=== PATIENT | male | born 1965 | race Caucasian/White ===

== ENCOUNTER → 2019-10-08 09:43 | Outpatient (BNVA) | payer MEDICARE, MEDICAID, SELFPAY | PROVIDERS: Family Provider Nurse Practitioner Family; PCP Nurse Practitioner Family; Visit Provider Specialist | DX: G80.1 Spastic diplegic cerebral palsy (principal); G40.309 Generalized idiopathic epilepsy and epileptic syndromes, not intractable, without status epilepticus | CPT/HCPCS: 99214 ==

== ENCOUNTER → 2019-12-04 09:53 | Outpatient (BNVA) | payer MEDICARE, MEDICAID, SELFPAY | PROVIDERS: Family Provider Nurse Practitioner Family; PCP Nurse Practitioner Family; Visit Provider Specialist | DX: G40.909 Epilepsy, unspecified, not intractable, without status epilepticus (principal); G40.309 Generalized idiopathic epilepsy and epileptic syndromes, not intractable, without status epilepticus | CPT/HCPCS: 95816 ==

== ENCOUNTER → 2020-01-01 10:18 | Outpatient (BNVA) | payer MEDICARE, MEDICAID, SELFPAY | PROVIDERS: Family Provider Nurse Practitioner Family; PCP Nurse Practitioner Family; Visit Provider Specialist | DX: G40.309 Generalized idiopathic epilepsy and epileptic syndromes, not intractable, without status epilepticus (principal); G80.1 Spastic diplegic cerebral palsy | CPT/HCPCS: 99214 ==

== ENCOUNTER → 2020-04-09 09:57 | Outpatient (BNVA) | payer MEDICARE, MEDICAID, SELFPAY | PROVIDERS: Family Provider Nurse Practitioner Family; PCP Nurse Practitioner Family; Visit Provider Specialist | DX: G40.309 Generalized idiopathic epilepsy and epileptic syndromes, not intractable, without status epilepticus (principal) | CPT/HCPCS: 99213 ==

== ENCOUNTER → 2022-02-10 09:22 | Outpatient (BNVA) | payer MEDICARE, MEDICAID, SELFPAY | PROVIDERS: Family Provider Nurse Practitioner Family; PCP Nurse Practitioner Family; Visit Provider Specialist | DX: G40.909 Epilepsy, unspecified, not intractable, without status epilepticus (principal) | CPT/HCPCS: 80157; 99213; 99214 ==

== ENCOUNTER → 2022-05-17 10:32 | Outpatient (BNVA) | payer MEDICARE, MEDICAID, SELFPAY | PROVIDERS: Family Provider Nurse Practitioner Family; PCP Nurse Practitioner Family; Visit Provider Specialist | DX: G40.409 Other generalized epilepsy and epileptic syndromes, not intractable, without status epilepticus (principal); G80.1 Spastic diplegic cerebral palsy | CPT/HCPCS: 99213; 99214 ==

== ENCOUNTER 2022-08-10 17:32 | Outpatient (CLI) | payer MEDICARE, MEDICAID, SELFPAY ==
--- NOTE | 2022-08-10 17:40 | XRR_ITS ---
PROCEDURE INFORMATION: Exam: XR Chest Exam date and time: 08/10/2022 5:46 PM Age: 57 years old Clinical indication: Cough; Additional info: Rule out aspiration pneumonia after choking TECHNIQUE: Imaging protocol: Radiologic exam of the chest. Views: 2 views. COMPARISON: CR XR chest 1V [id number] 03/13/2019 3:54 PM FINDINGS: Lungs: Unremarkable. No consolidation. Pleural spaces: Unremarkable. No pleural effusion. No pneumothorax. Heart/Mediastinum: Unremarkable. No cardiomegaly. Bones/joints: Metal alana in the left humerus. Kyphosis and degenerative changes of the thoracic spine. No visible fracture. XR/XR chest 2V* [id number] IMPRESSION: No acute findings.
== END 2022-08-10 17:33 | disposition home or self-care (01) ==
PROVIDERS: Family Provider Nurse Practitioner Family; PCP Nurse Practitioner Family; Visit Provider Nurse Practitioner Family
DX: R07.89 Other chest pain (principal); R05.9 Cough, unspecified
CPT/HCPCS: 71046

== ENCOUNTER 2022-09-01 16:42 | Emergency (ER) | payer MEDICARE, MEDICAID, SELFPAY ==
[2022-09-01 17:01] VITALS: PULSE 80; RESP 19; TEMP 36.6; O2SAT 99; BMI 19.5
--- NOTE | 2022-09-01 17:09 | XRR_ITS ---
PROCEDURE INFORMATION: Exam: XR Right Hand Exam date and time: 09/01/2022 5:20 PM Age: 57 years old Clinical indication: Pain; Patient HX: Patient from assisted found to have bruises on his right hand and holding it differently than normal. ; Additional info: Injury TECHNIQUE: Imaging protocol: Radiologic exam of the Right hand. Views: 3 or more views. COMPARISON: No relevant prior studies available. FINDINGS: Bones/joints: There is a small chip of bone along the dorsal aspect of the wrist common best seen on the lateral view, which may represent dorsal fracture from the hamate. Please correlate with clinical findings. There is widened scapholunate interval of over 6 mm consistent with scapholunate dissociation of uncertain age. Soft tissues: Mild soft tissue swelling dorsally. XR/XR hand RT min 3V* [id number] IMPRESSION: 1. Scapholunate dissociation. 2. Suspected dorsal fracture of the hamate.
--- NOTE | 2022-09-01 18:03 | W.ED.SKABFB ---
HPI - Skin/Abscess/Foreign Bdy General: Chief complaint: Skin/Abscess/Foreign Body Stated complaint: Right hand pain, Bruising Time Seen by Provider: 09/01/22 18:03 History of Present Illness: 57-year-old male patient comes in today with injury to the right hand. Patient's caregivers noted that his right hand was a little swollen yesterday and then today they noticed bruising. Patient was brought in for further evaluation to rule out fracture. Patient has cerebral palsy and developmental delay. Review of Systems Musc: Reports: extremity swelling PFSH ED PFSH: Family History Other Cancer Denies family history of Diabetes Hypertension Stroke Social History Smoking and tobacco status: never smoked Alcohol intake: never History of recent travel: No Physical Exam Const: COMMON NORMALS: alert HENMT: COMMON NORMALS: normocephalic HEAD & SCALP: normocephalic Neck/C-Spine: COMMON NORMALS: full ROM Resp: COMMON NORMALS: normal respiratory effort Cardio: COMMON NORMALS: regular rate RATE: regular rate Extremity: RIGHT UPPER EXTREMITY: Yes hand & digits (Bruising noted to the dorsal hand with some bruising into the digits. ) Right hand and digits: Yes ROM exam (Normal range of motion without crepitus) Neuro: SENSORIUM/ORIENTATION: Yes alert Skin: COMMON NORMALS: turgor normal GENERAL SKIN EXAM: turgor normal Course Vital Signs: Vital signs: Vital Signs Temperature 97.9 F 09/01/22 17:01 Pulse Rate 80 09/01/22 17:01 Respiratory Rate 19 H 09/01/22 17:01 Pulse Oximetry 99 09/01/22 17:01 Oxygen Delivery Me thod 09/01/22 17:01 MDM - Skin/Abscess/Foreign Bdy Medicial Decision Making Patient was brought in for evaluation of bruising to the dorsal right hand. On exam there is no swelling or crepitus noted to the joints or bones of the hand. Cap refill is intact. Pulses are intact. Differential diagnosis includes fracture, contusion, sprain. X-ray noted no fracture. Reviewed exam with caregivers with recommendations for treatment and follow-up. They reported understanding agreed to plan. Discharge Plan Discharge Patient Disposition: Home Clinical Impression: Contusion of hand Qualifiers: Encounter type: initial encounter Laterality: right Qualified Code(s): S60.221A - Contusion of right hand, initial encounter Condition: Stable Prescriptions: No Action ferrous sulfate 325 mg (65 mg iron) tablet 325 mg PO DAILY ascorbic acid (vitamin C) [Vitamin C] 500 mg capsule, extended release 500 mg PO DAILY Flintstones Complete Tablet,Chewable 1 tab PO DAILY loratadine 10 mg capsule 10 mg PO DAILY polyethylene glycol 3350 [Miralax] 17 gram/dose powder 17 gm PO DAILY baclofen 10 mg tablet 10 mg PO TID acetaminophen 160 mg tablet 160 mg PO Q6H PRN bisacodyl 10 mg suppository 10 mg IN DAILY PRN carbamide peroxide [Ear Drops (carbamide peroxide)] 6.5 % drops 5 drop EAR-BOTH DAILY ketoconazole 2 % cream 1 applic TOPICAL DAILY PRN zonisamide 100 mg capsule See Rx Instructions .ROUTE .COMPLEX Qty: 150 5RF Dose Instruction: TAKE 5 CAPSULES BY MOUTH EVERY DAY *open capsule AND mix with applesauce* Rx Instructions: TAKE 5 CAPSULES BY MOUTH EVERY DAY *open capsule AND mix with applesauce* carbamazepine 100 mg tablet,chewable See Rx Instructions .ROUTE .COMPLEX Qty: 300 2RF Dose Instruction: CHEW FOUR TABLETS BY MOUTH EVERY MORNING, TWO TABLETS AT NOON, AND FOUR TABLETS EVERY EVENING Rx Instructions: CHEW FOUR TABLETS BY MOUTH EVERY MORNING, TWO TABLETS AT NOON, AND FOUR TABLETS EVERY EVENING Discharge Orders: Discharge ED (Routine); Ordered 09/01/22 Ordered By: Marco Woo Referrals: Hilda Hill, ACADEMIC AFFAIRS DIRECTOR [Primary Care Provider] - Discharge Diet: Usual diet Discharge Activity: Increase activity as tolerated Patient Instructions: Hematoma (ED) Activity Restrictions/Additional Instructions: Activity as tolerated. Use ice or heat to the area for comfort. Tylenol and ibuprofen for pain. Follow-up with primary care for further instruction. Return to ED for new concerns. Coding Level of Care Code ED Synthetic [employer]il Blocks Pulper for Sandra Kessler
== END 2022-09-01 18:12 | disposition home or self-care (01) ==
PROVIDERS: Emergency Provider Nurse Practitioner Family; PCP Nurse Practitioner Family
DX: S60.221A Contusion of right hand, initial encounter (principal); X58.XXXA Exposure to other specified factors, initial encounter
CPT/HCPCS: 73130; 99283

== ENCOUNTER 2022-09-29 16:42 | Emergency (ER) | payer MEDICARE, MEDICAID, SELFPAY ==
[2022-09-29 16:50] VITALS: BP 134/83; PULSE 90; O2SAT 98; BMI 19.2
--- NOTE | 2022-09-29 18:33 | ED_ITS ---
HPI - Fall General: Chief Complaint: Fall Stated Complaint: Fall Time Seen by Provider: 09/29/22 17:06 Source: other (facility employee) Limitations: physical limitation History of Present Illness: Patient presents to the emergency department today brought by an employee from the transport company for his care facility. (I do believe the patient's guardian was notified of his presents here in the emergency department at the time of registration). The tram driver indicated that he has brought the patient in for evaluation after a different tractor trailer truck driver had placed him in a transport van and did not lock the wheels. He states that when the other tractor trailer truck driver began to drive forward, the wheelchair rolled back, flipped back and patient fell backwards. Patient has an old wound with a scab on the top of his head which appears to have been scratched off from rubbing on something when he fell back. 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 However, this particular employee with him today is very familiar with this patient and helps him regularly during the day. He indicates the patient appears to be at his baseline. The patient has not had any vomiting. He states the patient appears happy and has been playful since he has had him. Injury happened approximately 2 hours ago. Review of Systems General: Reports: 10 or more systems reviewed and unremarkable except in HPI and below Skin/Breast: Reports: skin tenderness (Wound, abrasion) [facility] ED PFSH: Family History Other Cancer Denies family history of Diabetes Hypertension Stroke Social History Smoking and tobacco status: never smoked Alcohol intake: never History of recent travel: No Physical Exam Const: COMMON NORMALS: no acute distress and alert; limitations HENMT: COMMON NORMALS: normocephalic, hearing grossly normal bilaterally, Normal external nose present and moist oral mucous membranes; head/scalp not atraumatic (Patient with a superficial abrasion approximately 0.75 cm in length and 0.5) HEAD & SCALP: normocephalic and abrasion; not atraumatic (Patient with a superficial abrasion approximately 0.75 cm in length and 0.5) NOSE: Normal external nose present Eye: COMMON NORMALS: Equal, round and reactive pupils present, EOMs intact bilaterally and conjunctivae normal CONJUNCTIVA: Yes conjunctivae normal PUPIL: Yes Equal, round and reactive pupils present Neck/C-Spine: COMMON NORMALS: no JVD Lymph: LYMPHATIC: no lymphadenopathy noted Resp: COMMON NORMALS: normal respiratory effort, No retractions and No use of accessory muscles Cardio: COMMON NORMALS: no JVD, regular rate and regular rhythm RATE: regular rate RHYTHM: regular rhythm GI: COMMON NORMALS: Normal to inspection, nondistended, normoactive bowel sounds present : COMMON NORMALS: Yes no CVA tenderness BLADDER/KIDNEY EXAM: Yes no CVA tenderness Back/Pelvis: COMMON NORMALS: no CVA tenderness and thoraco-lumbar ROM normal OTHER: Patient indicated no acute tenderness on palpation to the cervical or thoracic vertebrae. Nontender across the upper back or the paravertebral musculature of the neck. Patient demonstrates full range of motion to his neck as well as his extremities. Extremity: COMMON NORMALS: normal to inspection, full ROM and capillary refill normal Neuro: SENSORIUM/ORIENTATION: Yes alert Psych: COMMON NORMALS: cooperative and normal affect; negative for activity/motor behavior normal (History of CP with chronic motor abnormality) Skin: NARRATIVE SKIN EXAM: See HEENT evaluation Course Vital Signs: Vital signs: Vital Signs Pulse Rate 90 09/29/22 16:50 Blood Pressure 134/83 09/29/22 16:50 Pulse Oximetry 98 09/29/22 16:50 Oxygen Delivery Me thod 09/29/22 16:50 MDM - Fall Medical Decision Making Patient presents today for evaluation of injuries after a fall. While his night guard indicated it was a mild injury, he indicated that the transportation company wanted the patient evaluated. Per the caregiver, patient is at his baseline and has not had any vomiting or change in baseline since the injury. He does suspect that there is an abrasion to the top of the head but, is not swollen, bruised, or actively bleeding. We discussed application of topical cream and wound care-he indicates they already have antibiotic ointment at the facility and do not require another prescription. Close monitoring of the patient for any changes in his baseline were discussed with encouragement to be seen and reevaluated if they do occur. Differential Diagnosis Likely dislocation of shoulder region and concussion without loss of consciousness (Scalp contusion, scalp abrasion, cervical neck strain, thoracic back strain) Discharge Plan Discharge Patient Disposition: Home Clinical Impression: Abrasion of scalp, initial encounter, Contusion of scalp Condition: Stable Prescriptions: No Action ferrous sulfate 325 mg (65 mg iron) tablet 325 mg PO DAILY ascorbic acid (vitamin C) [Vitamin C] 500 mg capsule, extended release 500 mg PO DAILY Flintstones Complete Tablet,Chewable 1 tab PO DAILY loratadine 10 mg capsule 10 mg PO DAILY polyethylene glycol 3350 [Miralax] 17 gram/dose powder 17 gm PO DAILY baclofen 10 mg tablet 10 mg PO TID acetaminophen 160 mg tablet 160 mg PO Q6H PRN bisacodyl 10 mg suppository 10 mg OR DAILY PRN carbamide peroxide [Ear Drops (carbamide peroxide)] 6.5 % drops 5 drop EAR-BOTH DAILY ketoconazole 2 % cream 1 applic TOPICAL DAILY PRN zonisamide 100 mg capsule See Rx Instructions .ROUTE .COMPLEX Qty: 150 5RF Dose Instruction: TAKE 5 CAPSULES BY MOUTH EVERY DAY *open capsule AND mix with applesauce* Rx Instructions: TAKE 5 CAPSULES BY MOUTH EVERY DAY *open capsule AND mix with applesauce* carbamazepine 100 mg tablet,chewable See Rx Instructions .ROUTE .COMPLEX Qty: 300 2RF Dose Instruction: CHEW FOUR TABLETS BY MOUTH EVERY MORNING, TWO TABLETS AT NOON, AND FOUR TABLETS EVERY EVENING Rx Instructions: CHEW FOUR TABLETS BY MOUTH EVERY MORNING, TWO TABLETS AT NOON, AND FOUR TABLETS EVERY EVENING Discharge Orders: Discharge ED (Routine); Ordered 09/29/22 Ordered By: Peggy Schulz Referrals: Hilda Hill, PHLEBOTOMY TECH [Primary Care Provider] - Discharge Diet: Usual diet Discharge Activity: Increase activity as tolerated Patient Instructions: Abrasion (ED) Activity Restrictions/Additional Instructions: Patient's examination does show an area of abrasion and skin loss to the top of the head. While there is no bleeding, it is obvious that this is a slightly deeper layer of skin which is not quite ready to be exposed to the elements at this time. It is a higher risk for infection so I recommend washing the wound once or twice a day with warm water and a mild soap and applying the antibiotic ointment you have at home after each cleaning. Continue to watch and monitor the patient for any change from his typical baseline, new onset vomiting, or concerns for onset of skin infection. If any of these occur patient should be seen and reevaluated. Coding Level of Care Code ED Interpretive Program Coordinator for Sandra Kessler
== END 2022-09-29 17:35 | disposition home or self-care (01) ==
PROVIDERS: Emergency Provider Physician Assistant; PCP Nurse Practitioner Family
DX: S00.01XA Abrasion of scalp, initial encounter (principal); W05.0XXA Fall from non-moving wheelchair, initial encounter; Y92.818 Other transport vehicle as the place of occurrence of the external cause; G80.1 Spastic diplegic cerebral palsy; S00.03XA Contusion of scalp, initial encounter
CPT/HCPCS: 99283

== ENCOUNTER 2022-11-22 13:22 | Emergency (ER) | payer MEDICARE, MEDICAID, SELFPAY ==
[2022-11-22 13:35] VITALS: BP 179/106; PULSE 84; RESP 16; TEMP 36.8; O2SAT 98
[2022-11-22 14:08] VITALS: BP 105/69; PULSE 116; RESP 18; O2SAT 97
[2022-11-22 15:24] LABS: Basophils % 0.4 %; Eosinophils # 0.2 10^3/uL (0.0-0.8); Eosinophils % 1.7 %; Hematocrit 45.1 % (42.0-52.0); Hemoglobin 15.4 g/dL (11.7-16.6); Lymphocytes # 1.3 10^3/uL (0.8-4.8); Lymphocytes % 13.2 %; Mean Corpuscular HGB Conc 34.1 g/dL (30.0-36.0); Mean Corpuscular Hemoglobin 33.3 pg (28.0-34.0); Mean Corpuscular Volume 97.4 fl (80-94); Monocytes # 0.7 10^3/uL (0.2-0.9); Monocytes % 7.3 %; Neutrophils # 7.47 10^3/uL (1.8-7.7); Neutrophils % 77.2 %; Nucleated Red Blood Cells % 0 %; Platelet Count 285 10^3/cmm (130-400); Red Blood Count 4.63 10^6/uL (4.1-5.3); Red Cell Distribution Width 12.9 % (12.1-15.1); White Blood Count 9.7 10^3/uL (4.0-10.0)
[2022-11-22 15:38] VITALS: BP 133/78; PULSE 80; RESP 18; O2SAT 99
[2022-11-22 16:01] LABS: Alanine Aminotransferase 18 U/L (0-41); Albumin Level 4.5 g/dL (3.5-5.2); Alkaline Phosphatase 175 U/L (40-130); Aspartate Amino Transferase 20 U/L (0-40); Blood Urea Nitrogen 13 mg/dL (6-20); Calcium 9.1 mg/dL (8.5-10.5); Carbon Dioxide 23 mmol/L (22-29); Chloride 101 mmol/L (98-107); Globulin 3.1 g/dL (1.3-4.6); Glomerular Filtration Rate 137.9 mL/min (90-130); Glucose 92 mg/dL (65-115); Osmolality Calculated 284 mOsm/kg (285-295); Sodium 137 mmol/L (136-145); Total Bilirubin 0.4 mg/dL (0.15-1.2); Total Protein 7.6 g/dL (6.6-8.7)
[2022-11-22 16:04] LABS: Anion Gap 17.3 (5-19); Potassium 4.3 mmol/L (3.5-5.1)
--- NOTE | 2022-11-22 17:37 | W.ED.GENADLT ---
HPI - General Adult General: Chief complaint: General Medical Stated complaint: Eye is bloodshot, High Blood Pressure Time Seen by Provider: 11/22/22 17:24 Source: patient Mode of arrival: ambulatory History of Present Illness: 57-year-old male presents emergency room lives at a [facility]. He is they are concerned about his blood pressure of also noticed a little bit of redness in the right eye at approximately 4 to 5 o'clock position at the edge of the cornea. His behaviors are normal no recent eye trauma that they are aware of. Onset (ago): unknown Relieving factors: none Exacerbating factors: none Associated symptoms: Deny chest pain, confusion, cough, diaphoresis, decreased appetite, dyspnea, fevers/chills, headache(s), malaise, nausea, rash, palpitations, seizures, short of breath, syncope, vomiting or weakness Treatments prior to arrival: none Review of Systems Const: Denies: fever(s), chills, fatigue, malaise or diaphoresis ENMT: Denies: throat pain, ear or mastoid pain, nasal discharge or nasal congestion Card: Denies: chest pain, palpitations or syncope Resp: Denies: dyspnea GI: Denies: nausea or vomiting : Denies: flank pain, dysuria, urinary frequency or urinary urgency Skin/Breast: Denies: rash Neuro: Denies: headache(s) or confusion PFSH ED PFSH: Family History Other Cancer Denies family history of Diabetes Hypertension Stroke Social History Smoking and tobacco status: never smoked Alcohol intake: never Physical Exam Const: COMMON NORMALS: no acute distress GENERAL APPEARANCE: cooperative and comfortable ORIENTATION/CONSCIOUSNESS: Yes awake HENMT: COMMON NORMALS: normocephalic, atraumatic and hearing grossly normal bilaterally HEAD & SCALP: normocephalic and atraumatic Eye: OTHER: Subconjunctival hematoma to 4 to 5 o'clock position in the right eye. No hyphema no evidence of rupture or laceration. Pupils equal react light extraocular is intact Resp: COMMON NORMALS: normal respiratory effort, No retractions, No use of accessory muscles and clear to auscultation bilaterally AUSCULTATION: clear to auscultation bilaterally Cardio: COMMON NORMALS: regular rate, regular rhythm and No murmurs present (Cardio) RATE: regular rate RHYTHM: regular rhythm Extremity: COMMON NORMALS: normal to inspection, capillary refill normal, no clubbing, cyanosis or edema, no calf tenderness and no pedal edema Skin: COMMON NORMALS: no rashes or lesions noted GENERAL SKIN EXAM: no rashes or lesions noted Course Vital Signs: Vital signs: Vital Signs Temperature 98.2 F 11/22/22 13:35 Pulse Rate 80 11/22/22 15:38 Respiratory Rate 18 11/22/22 15:38 Blood Pressure 133/78 11/22/22 15:38 Pulse Oximetry 99 11/22/22 15:38 Oxygen Delivery Me thod Room Air 11/22/22 15:38 MDM - General Adult Medical Decision Making Blood pressure stable continue to monitor at home. Follow-up with primary care to reevaluate recommend blood pressure log once twice daily for the next week. Subconjunctival hematoma is self-limiting and will reabsorb on its own watch for any changes. Avoid NSAIDs. Medical Records I reviewed the patient's medical records. Lab Data I reviewed the patient's lab results. 11/22/22 15:05 11/22/22 15:05 Laboratory Results WBC 9.7 10^3/uL (4.0-10.0) 11/22/22 15:05 RBC 4.63 10^6/uL (4.1-5.3) 11/22/22 15:05 Hgb 15.4 g/dL (11.7-16.6) 11/22/22 15:05 Hct 45.1 % (42.0-52.0) 11/22/22 15:05 MCV 97.4 fl (80-94) H 11/22/22 15:05 MCH 33.3 pg (28.0-34.0) 11/22/22 15:05 MCHC 34.1 g/dL (30.0-36.0) 11/22/22 15:05 RDW 12.9 % (12.1-15.1) 11/22/22 15:05 Plt Count 285 10^3/cmm (130-400) 11/22/22 15:05 MPV 9.0 fL (7.4-10.4) 11/22/22 15:05 Neut % (Auto) 77.2 % 11/22/22 15:05 Lymph % (Auto) 13.2 % 11/22/22 15:05 [place] % (Auto) 7.3 % 11/22/22 15:05 Eos % (Auto) 1.7 % 11/22/22 15:05 Baso % (Auto) 0.4 % 11/22/22 15:05 Neut # (Auto) 7.47 10^3/uL (1.8-7.7) 11/22/22 15:05 Lymph # (Auto) 1.3 10^3/uL (0.8-4.8) 11/22/22 15:05 [place] # (Auto) 0.7 10^3/uL (0.2-0.9) 11/22/22 15:05 Eos # (Auto) 0.2 10^3/uL (0.0-0.8) 11/22/22 15:05 Baso # (Auto) 0.0 10^3/uL (0.0-0.1) 11/22/22 15:05 Nucleated RBC % (auto) 0 % 11/22/22 15:05 Nucleated RBCs # 0.0 /100WBC 11/22/22 15:05 Sodium 137 mmol/L (136-145) 11/22/22 15:05 Potassium 4.3 mmol/L (3.5-5.1) 11/22/22 15:05 Chloride 101 mmol/L (98-107) 11/22/22 15:05 Carbon Dioxide 23 mmol/L (22-29) 11/22/22 15:05 Anion Gap 17.3 (5-19) 11/22/22 15:05 BUN 13 mg/dL (6-20) 11/22/22 15:05 Creatinine 0.6 mg/dL (0.7-1.2) L 11/22/22 15:05 GFR Calculation 137.9 mL/min (90-130) H 11/22/22 15:05 Glucose 92 mg/dL (65-115) 11/22/22 15:05 Calculated Osmolality 284 mOsm/kg (285-295) L 11/22/22 15:05 Calcium 9.1 mg/dL (8.5-10.5) 11/22/22 15:05 Total Bilirubin 0.4 mg/dL (0.15-1.2) 11/22/22 15:05 AST 20 U/L (0-40) 11/22/22 15:05 ALT 18 U/L (0-41) 11/22/22 15:05 Alkaline Phosphatase 175 U/L (40-130) H 11/22/22 15:05 Total Protein 7.6 g/dL (6.6-8.7) 11/22/22 15:05 Albumin 4.5 g/dL (3.5-5.2) 11/22/22 15:05 Globulin 3.1 g/dL (1.3-4.6) 11/22/22 15:05 Discharge Plan Discharge Patient Disposition: Home Clinical Impression: Subconjunctival hematoma Condition: Stable Prescriptions: No Action ferrous sulfate 325 mg (65 mg iron) tablet 325 mg PO DAILY ascorbic acid (vitamin C) [Vitamin C] 500 mg capsule, extended release 500 mg PO DAILY Flintstones Complete Tablet,Chewable 1 tab PO DAILY loratadine 10 mg capsule 10 mg PO DAILY polyethylene glycol 3350 [Miralax] 17 gram/dose powder 17 gm PO DAILY baclofen 10 mg tablet 10 mg PO TID acetaminophen 160 mg tablet 160 mg PO Q6H PRN bisacodyl 10 mg suppository 10 mg [place] DAILY PRN carbamide peroxide [Ear Drops (carbamide peroxide)] 6.5 % drops 5 drop EAR-BOTH DAILY ketoconazole 2 % cream 1 applic TOPICAL DAILY PRN zonisamide 100 mg capsule See Rx Instructions .ROUTE .COMPLEX Qty: 150 5RF Dose Instruction: TAKE 5 CAPSULES BY MOUTH EVERY DAY *open capsule AND mix with applesauce* Rx Instructions: TAKE 5 CAPSULES BY MOUTH EVERY DAY *open capsule AND mix with applesauce* carbamazepine 100 mg tablet,chewable See Rx Instructions .ROUTE .COMPLEX Qty: 300 0RF Dose Instruction: CHEW FOUR TABLETS BY MOUTH EVERY MORNING, TWO TABLETS AT NOON, AND FOUR TABLETS EVERY EVENING Rx Instructions: CHEW FOUR TABLETS BY MOUTH EVERY MORNING, TWO TABLETS AT NOON, AND FOUR TABLETS EVERY EVENING Discharge Orders: Discharge ED (Routine); Ordered 11/22/22 Ordered By: Tim Guan Referrals: Hilda Hill, TIN CUTTER [Primary Care Provider] - Discharge Diet: Usual diet Discharge Activity: Resume usual activity Patient Instructions: Subconjunctival Hemorrhage (ED), Opioid Safety, Pain Management Activity Restrictions/Additional Instructions: You are seen today for some blood in the right eye. This is called a subconjunctival hematoma that are usually result of minor trauma or even sneezing or coughing. They are self-limited and will reabsorb spontaneously no inner mention needs to be taken. Continue your previously prescribed medications follow-up with your primary care doctor as needed. Coding Level of Care Code ED Necktie Operator Pockets [employer] Pieces for Sandra Kessler
== END 2022-11-22 18:02 | disposition home or self-care (01) ==
PROVIDERS: Emergency Provider Family Medicine; PCP Nurse Practitioner Family
DX: H57.89 Other specified disorders of eye and adnexa (principal)
CPT/HCPCS: 36415; 80053; 85025; 99283

== ENCOUNTER → 2023-02-09 08:37 | Outpatient (BNVA) | payer MEDICARE, MEDICAID, SELFPAY | PROVIDERS: PCP Nurse Practitioner Family; Visit Provider Specialist | DX: G40.319 Generalized idiopathic epilepsy and epileptic syndromes, intractable, without status epilepticus (principal); G40.419 Other generalized epilepsy and epileptic syndromes, intractable, without status epilepticus | CPT/HCPCS: 99213 ==

== ENCOUNTER 2024-02-07 09:19 | Outpatient (CLI) | payer MEDICARE, MEDICAID, SELFPAY ==
[2024-02-11 13:04] LABS: Carbamazepine Free 1.9 mcg/mL (1.0-3.0)
== END 2024-02-07 09:20 | disposition home or self-care (01) ==
LOC: LAB 09:35
PROVIDERS: PCP Nurse Practitioner Family; Visit Provider Nurse Practitioner Family
DX: R29.90 Unspecified symptoms and signs involving the nervous system (principal); G40.309 Generalized idiopathic epilepsy and epileptic syndromes, not intractable, without status epilepticus; G80.1 Spastic diplegic cerebral palsy; G40.909 Epilepsy, unspecified, not intractable, without status epilepticus
CPT/HCPCS: 36415; 80157; 99213

== ENCOUNTER 2024-04-14 20:52 | Emergency (ER) | payer MEDICARE, MEDICAID, SELFPAY ==
[2024-04-14 21:07] VITALS: BP 135/78; PULSE 78; RESP 18; TEMP 36.8; O2SAT 95; BMI 19.9
--- NOTE | 2024-04-14 22:52 | CTR_ITS ---
PROCEDURE INFORMATION: Exam: CT Head Without Contrast Exam date and time: 04/15/2024 12:59 AM Age: 59 years old Clinical indication: Injury or trauma; Fall; Blunt trauma (contusions or hematomas); Consciousness not specified; Patient HX: Patient had siezure while laying in bed and rolled over striking head against night stand. History of seizure disorder and cerebral palsy. TECHNIQUE: Imaging protocol: Computed tomography of the head without contrast. Radiation optimization: All CT scans at this facility use at least one of these dose optimization techniques: automated exposure control; mA and/or kV adjustment per patient size (includes targeted exams where dose is matched to clinical indication); or iterative reconstruction. COMPARISON: No relevant prior studies available. RADIATION DOSE METRICS: Total DLP (mGy-cm): 720.44 FINDINGS: Brain: Age appropriate atrophy and small vessel ischemic change. 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 No evidence of intracranial hemorrhage, mass effect, midline shift or extra-axial fluid collections. Midline structures are normal. Miller-white matter differentiation is normal. Cerebral ventricles: No ventriculomegaly. Paranasal sinuses: Visualized sinuses are unremarkable. No fluid levels. Mastoid air cells: Visualized mastoid air cells are well aerated. Bones: Unremarkable. No acute fracture. Soft tissues: Unremarkable. CT/CT head wo con* [id number] IMPRESSION: No acute intracranial injury.
[2024-04-14 23:47] LABS: Basophils % 0.7 %; Eosinophils # 0.2 10^3/uL (0.0-0.8); Eosinophils % 3.8 %; Hematocrit 44.4 % (37-53); Lymphocytes % 16.7 %; Mean Corpuscular HGB Conc 34.5 g/dL (30-55); Mean Corpuscular Hemoglobin 33.7 pg (27-33); Mean Corpuscular Volume 97.8 fl (82-101); Mean Platelet Volume 8.9 fL (7.4-10.4); Monocytes # 0.5 10^3/uL (0.2-0.9); Monocytes % 8.8 %; Neutrophils # 4.04 10^3/uL (1.8-7.7); Neutrophils % 69.5 %; Nucleated Red Blood Cells % 0 %; Platelet Count 317 10^3/cmm (157-399); Red Blood Count 4.54 10^6/uL (3.85-5.65); Red Cell Distribution Width 12.6 % (12.1-15.1); White Blood Count 5.81 10^3/uL (3.29-11.43)
[2024-04-15 00:20] LABS: Alanine Aminotransferase 17 U/L (0-41); Albumin Level 4.4 g/dL (3.5-5.2); Alkaline Phosphatase 202 U/L (40-130); Anion Gap 16.7 (5-19); Aspartate Amino Transferase 17 U/L (0-40); Blood Urea Nitrogen 19 mg/dL (8-23); Calcium 8.8 mg/dL (8.5-10.5); Carbon Dioxide 24 mmol/L (22-29); Chloride 108 mmol/L (98-107); Creatinine Clr Calc Pharmacy 72.0557; Globulin 2.8 g/dL (1.3-4.6); Glomerular Filtration Rate 98.3 mL/min (90-130); Glucose 99 mg/dL (65-115); Osmolality Calculated 300 mOsm/kg (285-295); Potassium 4.7 mmol/L (3.5-5.1); Sodium 144 mmol/L (136-145); Total Bilirubin 0.2 mg/dL (0.15-1.2); Total Protein 7.2 g/dL (6.6-8.7)
--- NOTE | 2024-04-15 02:26 | XRR_ITS ---
PROCEDURE INFORMATION: Exam: XR Left Shoulder Exam date and time: 04/15/2024 2:36 AM Age: 59 years old Clinical indication: Injury or trauma; Fall; Blunt trauma (contusions or hematomas); Left; Prior surgery; Surgery date: 6+ months; Surgery type: Humeral alana; Patient HX: Patient with seizure disorder and cerebral palsy rolled out of bed striking shoulder against night stand. Contusion to posterior lateral trapezius. ; Additional info: Fall L shoulder pain TECHNIQUE: Imaging protocol: Radiologic exam of the left shoulder. Views: 2 or more views. COMPARISON: CR XR chest 2V* [id number] 08/10/2022 5:46 PM FINDINGS: Bones/joints: There is calcification in the supraspinatus tendon consistent with calcific tendinopathy. There is fixation hardware in the humeral shaft which appears intact. Soft tissues: Normal. XR/XR shoulder LT min 2V* [id number] IMPRESSION: No acute bony injury.
[2024-04-15 03:42] VITALS: RESP 16
--- NOTE | 2024-04-15 05:55 | W.ED.HEATRA ---
HPI - Head Injury General: Chief complaint: Head Injury Stated complaint: seizure, fall hit head Time Seen by Provider: 04/15/24 02:13 History of Present Illness: 59 year old gentleman with a history of cerebral palsy developmental delay. He presents after having a seizure at home, following, and hitting his head on a bookshelf. He has a small bruise to the back of his head. He has not vomited. His mental status appears baseline to his caretakers. No seizures following the event. Related Data Home Medications Medication Instructions Recorded Confirmed acetaminophen 160 mg tablet 160 mg PO Q6H PRN 10/08/19 02/07/24 ascorbic acid (vitamin C) 500 mg 500 mg PO DAILY 10/08/19 02/07/24 capsule,extended release (Vitamin C) baclofen 10 mg tablet 10 mg PO TID 10/08/19 02/07/24 bisacodyl 10 mg rectal suppository 10 mg WA DAILY PRN 10/08/19 02/07/24 carbamide peroxide 6.5 % ear drops 5 drop otic (ear) DAILY 10/08/19 02/07/24 (Ear Drops (carbamide peroxide)) ferrous sulfate 325 mg (65 mg 325 mg PO DAILY 10/08/19 02/07/24 iron) tablet ketoconazole 2 % topical cream 1 applic topical DAILY PRN 10/08/19 02/07/24 loratadine 10 mg capsule 10 mg PO DAILY 10/08/19 02/07/24 pediatric multivitamin no.76 1 tab PO DAILY 10/08/19 02/07/24 (Flintstones Complete chewable tablet) polyethylene glycol 3350 17 17 gm PO DAILY 10/08/19 02/07/24 gram/dose oral powder (Miralax) Previous Rx's Medication Instructions Recorded carbamazepine 100 mg chewable See Rx Instructions .Route 12/21/23 tablet .COMPLEX #300 tabs zonisamide 100 mg capsule See Rx Instructions .Route 02/14/24 .COMPLEX #150 caps Allergies Allergy/AdvReac Type Severity Reaction Status Date / Time midazolam [From Versed] Allergy Severe Unknown Verified 04/14/24 21:12 [facility] PFSH: Family History Other Cancer Denies family history of Diabetes Hypertension Stroke Social History Smoking and tobacco/nicotine status: never used tobacco/nicotine Alcohol intake: never Substance/Drug Use: never Physical Exam Const: COMMON NORMALS: no acute distress GENERAL APPEARANCE: cooperative and comfortable; not ill appearing ORIENTATION/CONSCIOUSNESS: Yes awake and Yes Other orientation findings (mental status baseline) HENMT: COMMON NORMALS: Normal external nose present HEAD & SCALP: hematoma (small occipital) FACE & SINUS: normal facial exam NOSE: Normal external nose present Eye: COMMON NORMALS: Equal, round and reactive pupils present and EOMs intact bilaterally PUPIL: Yes Equal, round and reactive pupils present Resp: COMMON NORMALS: normal respiratory effort, No use of accessory muscles and clear to auscultation bilaterally AUSCULTATION: clear to auscultation bilaterally Cardio: COMMON NORMALS: regular rate and regular rhythm RATE: regular rate RHYTHM: regular rhythm Extremity: NARRATIVE EXTREMITY EXAM: Left shoulder small ecchymosis with swelling over upper scapula. Course Vital Signs: Vital signs: Vital Signs Temperature 98.2 F 04/14/24 21:07 Pulse Rate 78 04/14/24 21:07 Respiratory Rate 16 04/15/24 03:42 Blood Pressure 135/78 04/14/24 21:07 Pulse Oximetry 95 04/14/24 21:07 Oxygen Delivery Me thod Room Air 04/14/24 21:07 MDM - Head Injury Medcial Decision Making Mental status is baseline. Vitals are normal period head CT is negative. Shoulder X-ray shows no acute injury. Laboratory workup is not remarkable. Stable for discharge period to return for new symptoms or worsening seizures. Lab Data 04/14/24 23:37 04/14/24 23:[address] 04/14/24 22:52 IMPRESSION: No acute intracranial injury. Shoulder X-Ray 04/15/24 02:26 IMPRESSION: No acute bony injury. Laboratory Results WBC 5.81 10^3/uL (3.29-11.43) 04/14/24 23:37 RBC 4.54 10^6/uL (3.85-5.65) 04/14/24 23:37 Hgb 15.30 g/dL (11.27-16.99) 04/14/24 23:37 Hct 44.4 % (37-53) 04/14/24 23:37 MCV 97.8 fl (82-101) 04/14/24 23:37 MCH 33.7 pg (27-33) H 04/14/24 23:37 MCHC 34.5 g/dL (30-55) 04/14/24 23:37 RDW 12.6 % (12.1-15.1) 04/14/24 23:37 Plt Count 317 10^3/cmm (157-399) 04/14/24 23:37 MPV 8.9 fL (7.4-10.4) 04/14/24 23:37 Neut % (Auto) 69.5 % 04/14/24 23:37 Lymph % (Auto) 16.7 % 04/14/24 23:37 Canyon % (Auto) 8.8 % 04/14/24 23:37 Eos % (Auto) 3.8 % 04/14/24 23:37 Baso % (Auto) 0.7 % 04/14/24 23:37 Neut # (Auto) 4.04 10^3/uL (1.8-7.7) 04/14/24 23:37 Lymph # (Auto) 1.0 10^3/uL (0.8-4.8) 04/14/24 23:37 Canyon # (Auto) 0.5 10^3/uL (0.2-0.9) 04/14/24 23:37 Eos # (Auto) 0.2 10^3/uL (0.0-0.8) 04/14/24 23:37 Baso # (Auto) 0.0 10^3/uL (0.0-0.1) 04/14/24 23:37 Nucleated RBC % (auto) 0 % 04/14/24 23:37 Nucleated RBCs # 0.0 /100WBC 04/14/24 23:37 Sodium 144 mmol/L (136-145) 04/14/24 23:37 Potassium 4.7 mmol/L (3.5-5.1) 04/14/24 23:37 Chloride 108 mmol/L (98-107) H 04/14/24 23:37 Carbon Dioxide 24 mmol/L (22-29) 04/14/24 23:37 Anion Gap 16.7 (5-19) 04/14/24 23:37 BUN 19 mg/dL (8-23) 04/14/24 23:37 Creatinine 0.8 mg/dL (0.7-1.2) 04/14/24 23:37 GFR Calculation 98.3 mL/min (90-130) 04/14/24 23:37 Glucose 99 mg/dL (65-115) 04/14/24 23:37 Calculated Osmolality 300 mOsm/kg (285-295) H 04/14/24 23:37 Calcium 8.8 mg/dL (8.5-10.5) 04/14/24 23:37 Total Bilirubin 0.2 mg/dL (0.15-1.2) 04/14/24 23:37 AST 17 U/L (0-40) 04/14/24 23:37 ALT 17 U/L (0-41) 04/14/24 23:37 Alkaline Phosphatase 202 U/L (40-130) H 04/14/24 23:37 Total Protein 7.2 g/dL (6.6-8.7) 04/14/24 23:37 Albumin 4.4 g/dL (3.5-5.2) 04/14/24 23:37 Globulin 2.8 g/dL (1.3-4.6) 04/14/24 23:37 All radiology interpretation(s) finalized by discharge Discharge Plan Discharge Patient Disposition: Home Clinical Impression: Contusion of scalp, Generalized epilepsy, Contusion of left shoulder Condition: Stable Prescriptions: No Action ferrous sulfate 325 mg (65 mg iron) tablet 325 mg PO DAILY ascorbic acid (vitamin C) [Vitamin C] 500 mg capsule, extended release 500 mg PO DAILY Flintstones Complete Tablet,Chewable 1 tab PO DAILY loratadine 10 mg capsule 10 mg PO DAILY polyethylene glycol 3350 [Miralax] 17 gram/dose powder 17 gm PO DAILY baclofen 10 mg tablet 10 mg PO TID acetaminophen 160 mg tablet 160 mg PO Q6H PRN bisacodyl 10 mg suppository 10 mg WA DAILY PRN carbamide peroxide [Ear Drops (carbamide peroxide)] 6.5 % drops 5 drop EAR-BOTH DAILY ketoconazole 2 % cream 1 applic TOPICAL DAILY PRN carbamazepine 100 mg tablet,chewable See Rx Instructions .ROUTE .COMPLEX Qty: 300 11RF Dose Instruction: CHEW THREE TIMES DAILY; 4 TABLETS EVERY MORNING, 2 TABLETS AT NOON, 4 TABLETS AT BEDTIME Rx Instructions: CHEW THREE TIMES DAILY; 4 TABLETS EVERY MORNING, 2 TABLETS AT NOON, 4 TABLETS AT BEDTIME zonisamide 100 mg capsule See Rx Instructions .ROUTE .COMPLEX Qty: 150 11RF Dose Instruction: TAKE 5 CAPSULES BY MOUTH EVERY DAY FOR SEIZURES *OPEN INTO APPLESAUCE* Rx Instructions: TAKE 5 CAPSULES BY MOUTH EVERY DAY FOR SEIZURES *OPEN INTO APPLESAUCE* Discharge Orders: Discharge ED (Routine); Ordered 04/15/24 Ordered By: Haseeb White Referrals: Hilda Hill FNP [Primary Care Provider] - 1-3 days Patient Instructions: Scalp Contusion in Adults (ED), Recurrent Seizures in Adults (ED), Opioid Safety, Pain Management Coding Level of Care Code ED Blending Coordinator for Sandra Kessler
== END 2024-04-15 03:37 | disposition home or self-care (01) ==
PROVIDERS: Emergency Provider Emergency Medicine; PCP Nurse Practitioner Family
DX: S00.03XA Contusion of scalp, initial encounter (principal); S40.012A Contusion of left shoulder, initial encounter; G40.409 Other generalized epilepsy and epileptic syndromes, not intractable, without status epilepticus; G80.9 Cerebral palsy, unspecified; W22.8XXA Striking against or struck by other objects, initial encounter
CPT/HCPCS: 36415; 70450; 73030; 80053; 85025; 99284

== ENCOUNTER → 2025-02-05 08:02 | Outpatient (BNVA) | payer MEDICARE, MEDICAID, SELFPAY | PROVIDERS: PCP Nurse Practitioner Family; Visit Provider Specialist | DX: R29.90 Unspecified symptoms and signs involving the nervous system (principal); G40.309 Generalized idiopathic epilepsy and epileptic syndromes, not intractable, without status epilepticus; G80.1 Spastic diplegic cerebral palsy | CPT/HCPCS: 99213 ==

== ENCOUNTER 2025-06-22 20:00 | Emergency (ER) | payer MEDICARE, MEDICAID, SELFPAY ==
--- OUTSIDE RECORDS SUMMARY | 2025-06-22 20:05 | XMS_ITS | Patient Health Record ---
Author Organization [facility] Address [address] [place] [address] Care Team Providers Care Shredded Filler Cigar Maker Machine Name Role Phone DR. Humza Fowler Primary Care Provider Reason For Referral No Information Medications Medication SIG (Take, Route, Fr equency, Duration) Notes Start Date End Date Status Vitamin C Active Ferrous Sulfate Acti ve Baclofen Active Bisacodyl Active TEGretol Active Zonisamide Active Loratadine Active Polyethylene Glycol Active Plan Of Treatment No Information Insurance Providers Payer Name Payer Address Payer Phone Subscriber Number Group Number Insured Name Patient Relationship to Insured Coverage Start Date Coverage End Date Medicaid Dental [address] [place] [address] [id number] Moises Mack Self - patient is the insured Medical (General) History Medical History History ICD Code sinus trouble Epilepsy or seizures Mental Disabilities Speech problems cerebral palsy
--- OUTSIDE RECORDS SUMMARY | 2025-06-22 20:06 | XMS_ITS | Encounter Summary ---
Author Organization [facility] Address [address] [place] [address] Care Team Providers Care Frog Farmer Name Role Phone Julio Hodges MD Primary Care Provider [phone] Encounter Details Date Type Department Care Team (Latest Contact Info) Description 05/13/2006 Outpatient Historical [facility] Family Medicine [place] [id number] [phone] Samm Nunez Jr., MD [address] [place] [address] [address] [place] [phone] Other Convulsions (CMS/HCC) (Primary Dx); Unspecified Infantile Cerebral Palsy (CMS/HCC) Social History Tobacco Use Types Packs/Day Years Used Date Smoking Tobacco: Never Assessed Sex and Gender Information Value Date Recorded Sex Assigned at Not on file Legal Sex 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
--- OUTSIDE RECORDS SUMMARY | 2025-06-22 20:06 | XMS_ITS | Encounter Summary ---
Author Organization [facility] Address [address] [place] [address] Care Team Providers Care Laboratory Coordinator Name Role Phone Julio Hodges MD Primary Care Provider [phone] Encounter Details Date Type Department Care Team (Latest Contact Info) Description 05/04/2007 Outpatient Historical [facility] Medicine [place] [address] [phone] Hilda Hill, [place] [facility] [address] [place] [phone] Allergic Rhinitis, Cause Unspecified (Primary Dx) Social History Tobacco Use Types Packs/Day Years Used Date Smoking Tobacco: Never Assessed Sex and Gender Information Value Date Recorded Sex Assigned at Not on file 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
--- OUTSIDE RECORDS SUMMARY | 2025-06-22 20:06 | XMS_ITS | Clinical Summary ---
Author Organization [facility] Address [address] [place] [address] Care Team Providers Care Electrical Manufacturing Technician Name Role Phone Julio Hodges MD Primary Care Provider [phone] Allergies Active Allergy Reactions Criticality Noted Date Comments Midazolam Other (See Comments) 08/23/2016 Caused hyper activity Medications CHILDREN'S MULTI VITAMINS ORALIndications :Anemia Take 1 Tab by mouth daily. Chewable Active ASCORBIC ACID (VITAMIN C ORAL) Take 500 mg by mouth daily . Active Wheel Chair DeviceIndicatio ns:CP (cerebral palsy) (CMS/HCC),Ataxi a,Muscle spasticity For mobility in home. 1 Device 0 06/12/20 15 Active wall mount grab bars DME EQUIPMENTIndica tions:CP (cerebral palsy) (CMS/HCC),Ataxi a,Muscle spasticity 1 Each by See Admin Instructions route Continuous as needed (standing) For use in bathroom and bedroom to assist with stability for standing. 4 Each 0 06/12/20 15 Active carBAMazepine 100 mg chewable tabletIndicatio ns:Seizure disorder (CMS/HCC) Take 2 Tablets (200 mg) by mouth 3 times daily Note change of instructions.. 186 Tablet 5 10/10/19 19 Active Additional Information Patient taking differently: 300 mgOral,(No frequency reported), 300 mg at 8AM and at 8PM and 200 mg at noon, Reported on 04/11/2020 bisacodyl (DULCOLAX) 10 mg Suppository Insert 10 mg by rectum 1 time daily as needed for Constipation (if no BM x4 days). Active Zonisamide (ZONEGRAN) 100 mg capsule Take 500 mg by mouth daily with supper. Active baclofen (LIORESAL) 10 mg tabletIndicatio ns:Muscle spasticity TAKE ONE TABLET BY MOUTH THREE TIMES DAILY 90 Tablet 12 03/26/20 20 Active ketoconazole (NIZORAL) 2 % Cream Apply to affected area 1 time daily as needed (fungal rash in genital area). 60 Gram 1 04/11/20 Active ferrous sulfate 325 mg (65 mg iron) tablet Take 1 Tablet (325 mg) by mouth daily. Note change in dose. 30 Tablet 04/11/20 Active carbamide peroxide (Debrox) 6.5 % DropsIndication s:Bilateral impacted cerumen Administer 5 Drops in both ears see administration instructions. Daily for 3-5 days prn excessive ear wax. 30 mL 04/11/20 Active polyethylene glycol 3350 (MIRALAX) 17 gram/dose Powder Take 1 SCOOP (17 Grams) by mouth every other day. Note change in instruction. 527 Gram 04/11/20 Active acetaminophen (TYLENOL) 160 mg Tablet, ChewableIndicat ions:Tooth pain with chewing Take 2 Tablets (320 mg) by mouth every 4 hours as needed for Pain, Mild / Temperature. 100 Tablet 04/11/20 20 Active loratadine (Claritin) 10 mg tabletIndicatio ns:Environmenta l allergies Take 1 Tablet (10 mg) by mouth daily. 30 Tablet 04/11/20 20 Active Active Problems Problem Noted Date Diagnosed Date Muscle spasticity 07/02/2014 Anemia associated with acute blood loss 11/08/19 14 Aggressive behavior 04/10/2013 Agitation 04/10/2013 Ataxia 10/05/2011 Seizure disorder 09/17/2008 CP (cerebral palsy) MR (mental retardation) Immunizations Immunization Administration Dates Next Due Influenza Seasonal Unspecified Formulation IM Family History Medical History Relation Name Comments Healthy Mother Relation Name Status Comments Father Mother Alive Social History Tobacco Use Types Packs/Day Years Used Date Smoking Tobacco: Never Smokeless Tobacco: Never Tobacco Cessation:Counseling Given: No Alcohol Use Standard Drinks/Week Comments No 0 (1 standard drink = 0.6 oz pur e alcohol) Sex and Gender Information Value Date Recorded Sex Assigned at Not on file Legal Sex Male 4:57 AM MANUFACTURING 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 Gender Identity Not on file Sexual Orientation Not on file Occupation Industry Job Start Date Job End Date Not on file Not on file Not on file Not on file Last Filed Vital Signs Vital Sign Reading Time Taken Comments Blood Pressure 112/70 04/11/2020 11:09 AM CDT Pulse 84 04/11/2020 11:09 AM CDT Temperature 36.2 C (97.2 F) 04/11/2020 11:09 AM CDT Respiratory Rate 18 04/11/2020 11:09 AM CDT Oxygen Saturation 98% 04/24/2019 9:46 AM CDT Room Air Inhaled Oxygen Concentration - - Weight 47.6 kg (105 lb) 04/11/2020 11:09 AM CDT Height 152.4 cm (5') 04/11/2020 11:09 AM CDT Body Mass Index 20.51 04/11/2020 11:09 AM CDT Plan of Treatment Health Maintenance Due Date Last Done Comments DTAP/TDAP/TD VACCINES (1 - Tdap) 1982 Traditional Medicare (ACO) A nnual Wellness Visit 1982 COLORECTAL SCREENING 02/01/2008 FIT-DNA Q 3 years 02/01/2008 Flex Sig/CT Colonography Q 5 years 02/01/2008 ZOSTER VACCINE (1 of 2) 2013 Colorectal Cancer Screening 11/17/2019 FIT/FOBT Q 1 year 11/17/2019 11/16/2018, 11/06/2013 INFLUENZA VACCINE (#1) 2025 06/11/2016 RSV VACCINE (60+ or ) (1 - 1-dose 75+ series) 2038 Procedures Procedure Name Priority Date/Time Associated Diagnosis Comments OCCULT BLOOD IMMUNOASSAY, COLORECTAL SCREEN Routine 11/16/2018 10:27 AM CDT Screening for colon cancer from Last 3 Months or Most Recently Relevant to Health Maintenance Results * OCCULT BLOOD IMMUNOASSAY, COLORECTAL SCREEN (11/16/2018 10:27 AM CDT) OCCULT BLOOD, STOOL Negative Negative 11/16/2018 10:56 AM CDT [facility] Stool STOOL SPECIMEN / Unknown Collection / Unknown 11/16/2018 10:27 AM CDT 11/16/2018 10:27 AM CDT us Hilda Hill CUSTOMER DEVELOPMENT REPRESENTATIVE BODY FLUIDS AND STOOLS Final Result [facility]# [id number] [address] [place] [address] from Last 3 Months or Most Recently Relevant to Health Maintenance Insurance MEDICAID [place] PART A AND B Advance Directives For more information, please contact: [phone] * Full Code (Latest Code Status on File) Date Activated Date Inactivated Comments 08/23/2016 11:21 AM 08/23/2016 1:38 PM Care Teams Electrical Manufacturing Technician Relationship Specialty Start Date End Date Julio Hodges MD [address] [place] [address] PCP - General Family Practice 04/04/12
--- OUTSIDE RECORDS SUMMARY | 2025-06-22 20:06 | XMS_ITS | Encounter Summary ---
Author Organization [facility] Address [address] [place] [address] Care Team Providers Care Television Parts Tester Name Role Phone Julio Hodges MD Primary Care Provider [phone] Encounter Details Date Type Department Care Team (Latest Contact Info) Description 06/14/2006 Outpatient Historical [facility] Family Medicine [place] [id number] [phone] Samm Nunez Jr., MD [address] [place] [address] 248 [facility] [address] [place] [phone] Other Convulsions (CMS/HCC) (Primary Dx) Social History Tobacco Use Types Packs/Day Years Used Date Smoking Tobacco: Never Assessed Sex and Gender Information Value Date Recorded Sex Assigned at Not on file Legal Sex Male 4:57 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
--- OUTSIDE RECORDS SUMMARY | 2025-06-22 20:06 | XMS_ITS | Encounter Summary ---
Author Organization [facility] Address [address] [place] [address] Care Team Providers Care Medical Or Surgical Instrument Maker Name Role Phone Julio Hodges MD Primary Care Provider [phone] Encounter Details Date Type Department Care Team (Latest Contact Info) Description 06/14/2006 Outpatient Historical [facility] Family Medicine [place] [facility] [address] [phone] Samm Nunez Jr., MD [address] [place] [address] [address] [place] [address] Encounter for Long-Term (Current) Use of Other Medications (Primary Dx) Social History Tobacco Use Types Packs/Day Years Used Date Smoking Tobacco: Never Assessed Sex and Gender Information Value Date Recorded Sex Assigned at Not on file Legal Sex Male 4:57 AM GEOSPATIAL IMAGERY INTELLIGENCE ANALYST Gender Identity Not on file Sexual Orientation Not on file documented as of this encounter Plan of Treatment Not on file documented as of this encounter Procedures Procedure Name Priority Date/Time Associated Diagnosis Comments CBC WITH DIFFERENTIAL Routine 06/14/2006 11:59 AM GEOSPATIAL IMAGERY INTELLIGENCE ANALYST CARBAMAZEPINE LEVEL Routine 06/14/2006 1 1:59 AM GEOSPATIAL IMAGERY INTELLIGENCE ANALYST HEPATIC FUNCTION PANEL Routine 6 11:59 AM GEOSPATIAL IMAGERY INTELLIGENCE ANALYST documented in this encounter Results * (ABNORMAL) CBC WITH DIFFERENTIAL (06/14/2006 11:59 AM GEOSPATIAL IMAGERY INTELLIGENCE ANALYST) WBC 5.4 4.5 - 11.0 K/ul INTERFACE SYSTEM RBC 5.03 4.60 - 6.20 Mil/ul INTERFACE SYSTEM HEMOGLOBIN 16.8 14.0 - 18.0 g/dL INTERFACE SYSTEM HEMATOCRIT 46.5 41.0 - 53.0 % INTERFACE SYSTEM MCV 92.4 84.0 - 103.0 Fl INTERFACE SYSTEM MCH 33.4 27.0 - 34.0 pg INTERFACE SYSTEM MCHC 36.1(H) 30.0 - 35.0 g/dL INTERFACE SYSTEM RDW 12.7 11.0 - 14.5 % INTERFACE SYSTEM PLATELETS 304 140 - 440 K/ul INTERFACE SYSTEM MPV 11.7 8.9 - 12.8 Fl INTERFACE SYSTEM NEUTROPHILS 62.9 42.2 - 75.2 % INTERFACE SYSTEM LYMPHOCYTES 25.1 24.0 - 44.0 % INTERFACE SYSTEM MONOCYTES 5.2 2.0 - 10.0 % INTERFACE SYSTEM EOSINOPHILS 6.1 0.0 - 7.0 % INTERFACE SYSTEM BASOPHILS 0.7 0.0 - 1.0 % INTERFACE SYSTEM NEUTROPHIL ABSOLUTE 3.4 2.0 - 8.0 K/uL INTERFACE SYSTEM LYMPHOCYTE ABSOLUTE 1.4 1.2 - 4.0 K/ul INTERFACE SYSTEM MONOCYTE ABSOLUTE 0.3 0.1 - 0.6 K/ul INTERFACE SYSTEM EOSINOPHIL ABSOLUTE 0.3 0.0 - 0.7 K/ul INTERFACE SYSTEM BASOPHILS ABSOLUTE 0.0 0.0 - 0.2 K/ul INTERFACE SYSTEM 06/14/2006 11:5 9 AM GEOSPATIAL IMAGERY INTELLIGENCE ANALYST us Samm Nunez Jr., MD HEMATOLOGY ORDERABLES Camila l Result Performing Organization Address City/[facility] Phone Number INTERFACE SYSTEM Refer to clinic/hospital department * CARBAMAZEPINE LEVEL (06/14/2006 11:59 AM GEOSPATIAL IMAGERY INTELLIGENCE ANALYST) CARBAMAZEPINE LEVEL 9.0 4.0 - 10.0 ug/ml INTERFACE SYSTEM 06/14/2006 11:5 9 AM GEOSPATIAL IMAGERY INTELLIGENCE ANALYST us Samm Nunez Jr., MD CHEMISTRY ORDERABLES Final Result Performing Organization Address [facility] Co de Phone Number INTERFACE SYSTEM Refer to clinic/hospital department * (ABNORMAL) HEPATIC FUNCTION PANEL (06/14/2006 11:59 AM GEOSPATIAL IMAGERY INTELLIGENCE ANALYST) TOTAL PROTEIN 7.5 6.3 - 8.2 g/dL INTERFACE SYSTEM ALBUMIN 4.4 3.5 - 5.0 g/dL INTERFACE SYSTEM ALKALINE PHOSPHATASE 165(H) 25 - 100 U/L INTERFACE SYSTEM Comment: As of 05 the [facility] has changed testing methods. The new reference range is 25-100 The old referance range was 38-126 AST 26 8 - 33 U/L INTERFACE SYSTEM Comment: As of 05 the [facility] has changed testing methods. The new reference range is 8-33 The old referance range was Males 17-59 Females 14-36 ALT 29 4 - 36 IU/L INTERFACE SYSTEM Comment: As of 05 the [facility] has changed testing methods. The new reference range is 4-36 The old referance range was Males 21-72 Females 9-52 BILIRUBIN DIRECT 0.2 0.0 - 0.4 mg/dL INTERFACE SYSTEM BILIRUBIN TOTAL 0.5 0.3 - 1.2 mg/dL INTERFACE SYSTEM Comment: As of 05 the [facility] has changed testing methods. The new reference range is 0.3-1.2 The old referance range was 0.2-1.4 06/14/2006 11:5 9 AM GEOSPATIAL IMAGERY INTELLIGENCE ANALYST us Samm Nunez Jr., MD CHEMISTRY ORDERABLES Final Result INTERFACE SYSTEM Refer to clinic/hospital department documented in this encounter Visit Diagnoses Diagnosis Encounter for long-term (current) use of other medications- Primary documented in this encounter Care Teams Medical Or Surgical Instrument Maker Relationship Specialty Start Date End Date Julio Hodges MD [address] [place] [address] PCP - General Family Practice 04/04/12 documented as of this encounter
--- OUTSIDE RECORDS SUMMARY | 2025-06-22 20:06 | XMS_ITS | Encounter Summary ---
Author Organization [facility] Address [address] [place] [address] Care Team Providers Care Silverware Buffing Machine Operator Name Role Phone Fam Hodges Primary Care Provider [phone] Reason for Visit * Reason Comments Med Refill Encounter Details Date Type Department Care Team (Late st Contact Info) Description 06/20/2025 Refill [facility] Medicine [address] [phone] Hilda Hill, [address] [phone] Rash Social History Tobacco Use Types Packs/Day Years Used Date Smoking Tobacco: Never Smokeless Tobacco: Never Alcohol Use Standard Drinks/Week Comments No 0 (1 standard drink = 0.6 oz pur e alcohol) Sex and Gender Information Value Date Recorded Sex Assigned at Not on file Legal Sex 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 Gender Identity Not on file Sexual Orientation Not on file documented as of this encounter Miscellaneous Notes * Telephone Encounter - Yazmin Whitney LPN - 06/21/2025 2:10 PM CST Medication Refill Request Last Fill Date:nizoral x 2 refills; kenalog 09/27/23 x 1 refill; dulcolax 11/03/23 x 5 refills Recent and Future Visits: Recent Visits Date Type Provider Dept 10/11/24 Office Visit Hilda Hill FNP [facility] 08/23/24 Office Visit Hilda Hill FNP [facility] 05/01/24 Office Visit Fam Hodges DO [facility] Showing recent visits within past 540 days with a meds authorizing provider and meeting all other requirements Future Appointments Date Type Provider Dept 10/16/25 Appointment Hilda Hill FNP [facility] Showing future appointments within next 365 days with a meds authorizing provider and meeting all other requirements IGINAL EDUCATION TEACHER documented in this encounter Plan of Treatment Upcoming Encounters Date Type Department Care Team (Late st Contact Info) Description 10/16/2025 2:50 PM ABORIGINAL EDUCATION TEACHER Office Visit [facility] [address] [place] [phone] Hilda Hill FNP [address] [place] [address] [phone] documented as of this encounter Visit Diagnoses Diagnosis Rash Rash and other nonspecific skin eruption documented in this encounter Additional Health Concerns Assessment Noted Time PHQ-9 Depression Total Score: 1 08/23/19 1:22 PM ABORIGINAL EDUCATION TEACHER documented as of this encounter Care Teams Silverware Buffing Machine Operator Relationship Specialty Start Date End Date Fam Hodges DO [address] [place] [address] [phone] PCP - General Family Practice 04/05/24 documented as of this encounter
--- OUTSIDE RECORDS SUMMARY | 2025-06-22 20:06 | XMS_ITS | Encounter Summary ---
Author Organization [facility] Address [address] [place] [address] Care Team Providers Care Script Girl Name Role Phone Julio Hodges MD Primary Care Provider [phone] Encounter Details Date Type Department Care Team (Latest Contact Info) Description 12/06/2006 Outpatient Historical [facility] Medicine [place] [address] [phone] Julio Hodges MD [address] [place] [address] Unspecified Infantile Cerebral Palsy (CMS/HCC) (Primary Dx); Unspecified Mental Retardation; Other Convulsions (CMS/HCC) Social History Tobacco Use Types Packs/Day Years Used Date Smoking Tobacco: Never Assessed Sex and Gender Information Value Date Recorded Sex Assigned at Not on file Legal Sex Male 4:57 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
--- OUTSIDE RECORDS SUMMARY | 2025-06-22 20:06 | XMS_ITS | Clinical Summary ---
Author Organization [facility] Address [address] [facility] Attn: Epic Prelude ADT [place] [phone] Care Team Providers Care Siebel Administrator Name Role Phone Fam Hodges DO Primary Care Provider [phone] Allergies Active Allergy Reactions Criticality Noted Date Comments Midazolam Other (See Comments) 08/23/2016 Caused hyper activity Medications carBAMazepine 100 mg chewable tabletIndicatio ns:Seizure disorder (CMS/HCC) Take 2 Tablets (200 mg) by mouth 3 times daily Note change of instructions.. 186 Tablet 5 019 Active Additional Information Patient taking differently:200 mg Oral THREE TIMES DAILY,2 tablets at noon and 4 tablets morning and evening, Reported on 10/11/2024 Zonisamide (ZONEGRAN) 100 mg capsule Take 500 mg by mouth daily with supper. 019 Active Wheel Chair DeviceIndicatio ns:CP (cerebral palsy) (CMS/HCC),Ataxi a,Muscle spasticity For mobility in home. 1 Device 0 015 Active wall mount grab bars DME EQUIPMENTIndica tions:CP (cerebral palsy) (CMS/HCC),Ataxi a,Muscle spasticity 1 Each by See Admin Instructions route Continuous as needed (standing) For use in bathroom and bedroom to assist with stability for standing. 4 Each 0 015 Active Flintstones/Ext ra C Tablet, Chewable TAKE TWO TABLETS BY MOUTH EVERY DAY 60 Tablet 11 023 Active bisacodyL (DULCOLAX) 5 mg Tablet Bisacodyl Active Ear Drops 6.5 % DropsIndication s:Bilateral impacted cerumen instill FIVE Drops in BOTH ears TWICE DAILY FOR THREE DAYS (AT THE same time each MONTH) TO keep THE ear wax soft 30 mL Active Flintstones Immunity Support 10 mg iron Tablet, Chewable take two tablets by mouth every day 60 Tablet 11 Active carbamide peroxide (DEBROX) 6.5 % Drops 5 Drops by Otic route every 12 hours. 022 Active Children's TylenoL 160 mg Tablet, ChewableIndicat ions:Tooth pain with chewing CHEW TWO TABLETS BY MOUTH EVERY 4 HOURS NEEDED FOR PAIN/ MILD TEMPERATURE 100 Tablet 024 Active famotidine (PEPCID) 20 mg tabletIndicatio ns:Gastroesopha geal reflux disease, unspecified whether esophagitis present TAKE ONE TABLET BY MOUTH TWICE DAILY FOR ACID REFLUX 180 Tablet 3 024 Active loratadine (CLARITIN) 10 mg tabletIndicatio ns:Environmenta l allergies TAKE 1 TABLET BY MOUTH EVERY DAY FOR ALLERGIES 30 Tablet Active FeroSuL 325 mg (65 mg iron) tablet TAKE ONE TABLET BY MOUTH EVERY DAY FOR SUPPLEMENT 30 Tablet 024 Active neomycin-bacitr acin-polymyxin (Triple Antibiotic) 3.5mg-400 unit- 5,000 unit/gram Ointment APPLY TO ANY OPEN SORES OR ABRASIONS TWICE DAILY NEEDED TO PREVENT INFECTION 14.2 Gram Active ascorbic acid (Vitamin C) 500 mg Tablet, Chewable CHEW ONE TABLET BY MOUTH EVERY DAY FOR SUPPLEMENT 100 Tablet 3 025 Active baclofen (LIORESAL) 5 mg tabletIndicatio ns:Muscle spasticity TAKE ONE TABLET BY MOUTH THREE TIMES DAILY FOR MUSCLE SPASMS 270 Tablet 3 025 Active polyethylene glycol 3350 (MIRALAX) 17 gram/dose PowderIndicatio ns:Chronic idiopathic constipation Take 1 Scoop (17 Grams) by mouth every other day. Dissolve in 8 ounces of fluid and drink entire liquid 510 Gram 11 Active Flintstones/Ext ra C 100 mcg Tablet, Chewable TAKE TWO TABLETS BY MOUTH EVERY DAY FOR SUPPLEMENT 60 Tablet 11 025 Active ketoconazole (NIZORAL) 2 % Cream APPLY TO THE AFFECTED AREA(S) ONCE DAILY NEEDED FOR RASH 60 Gram 2 025 Active triamcinolone acetonide (KENALOG) 0.5 % CreamIndication s:Rash APPLY TO THE AFFECTED AREA(S) 4 TIMES DAILY NEEDED FOR RASH; NOT BE USED ON THE FACE 454 Gram 2 025 Active bisacodyL (DULCOLAX) 10 mg Suppository UNWRAP AND INSERT ONE SUPPOSITORY RECTALLY NEEDED if no BOWEL MOVEMENT in FOUR DAYS 12 Suppository 2 025 Active ketoconazole (NIZORAL) 2 % Cream APPLY TO THE AFFECTED AREA(S) ONCE DAILY NEEDED FOR RASH 60 Gram 2 024 2024 Discontinued triamcinolone acetonide (KENALOG) 0.5 % CreamIndication s:Rash Apply to affected area 4 times daily as needed (rash). Not to be used on the face. 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 Muscle spasticity 07/02/2014 Anemia associated with acute blood loss 11/08/19 14 Aggressive behavior 04/10/2013 Agitation 04/10/2013 Ataxia 10/05/2011 Generalized epilepsy 09/17/2008 Intellectual disability Encounters Date Type Department Care Team Description 06/20/[address] [phone] Hilda Hill, SIZE MIXER Rash 06/04/2025 External Device Data ST[facility] ABSTRACTION Provider, Abstract 04/30/2025 External Device Data ST[facility] ABSTRACTION Provider, Abstract 04/30/2025 External Device Data [facility] ABSTRACTION Provider, Abstract 04/23/2025 External Device Data [facility] ABSTRACTION Provider, Abstract 04/03/2025 External Device Data [facility] ABSTRACTION Provider, Abstract from Last 3 Months Immunizations Immunization Administration Dates Next Due Influenza Seasonal Unspecified Formulation IM Family History Medical History Relation Name Comments Healthy Mother Relation Name Status Comments Father Mother Alive Social History Tobacco Use Types Packs/Day Years Used Date Smoking Tobacco: Never Smokeless Tobacco: Never Tobacco Cessation:Counseling Given: Not Answered Alcohol Use Standard Drinks/Week Comments No 0 (1 standard drink = 0.6 oz pur e alcohol) Sex and Gender Information Value Date Recorded Sex Assigned at Not on file Legal Sex Male 5:35 AM NEONATAL INTENSIVE CARE NURSE Gender Identity Not on file Sexual Orientation Not on file Last Filed Vital Signs Vital Sign Reading Time Taken Comments Blood Pressure 110/68 10/11/2024 3:41 PM NEONATAL INTENSIVE CARE NURSE Pulse 76 10/11/2024 3:41 PM NEONATAL INTENSIVE CARE NURSE Temperature 36.5 C (97.7 F) 10/11/2024 3:41 PM NEONATAL INTENSIVE CARE NURSE Respiratory Rate 18 10/11/2024 3:41 PM NEONATAL INTENSIVE CARE NURSE Oxygen Saturation 98% 08/23/2024 1:24 PM NEONATAL INTENSIVE CARE NURSE Inhaled Oxygen Concentration - - Weight 50.3 kg (111 lb) 10/11/2024 3:41 PM NEONATAL INTENSIVE CARE NURSE Height 152.4 cm (5') 10/11/2024 3:41 PM NEONATAL INTENSIVE CARE NURSE Body Mass Index 21.68 10/11/2024 3:41 PM NEONATAL INTENSIVE CARE NURSE Plan of Treatment Upcoming Encounters Date Type Department Care Team (Late st Contact Info) Description 10/16/2025 2:50 PM NEONATAL INTENSIVE CARE NURSE Office Visit [address] [phone] Hilda Hill, [facility] [address] [phone] Health Maintenance Due Date Last Done Comments FIT/ DNA Q 3 YEARS (AUTO ORDER) 1981 DTAP/TDAP/TD VACCINES (1 - Tdap) 1982 Traditional Medicare (ACO) A nnual Wellness Visit 1982 COLORECTAL CANCER SCREENING (AUTO ORDER) 02/01/2008 COLORECTAL SCREENING 02/01/2008 FIT-DNA Q 3 years 02/01/2008 Flex Sig/CT Colonography Q 5 years 02/01/2008 ZOSTER VACCINE (1 of 2) 2013 FLEX SIG/CT COLONOGRAPHY Q 5 YEARS (AUTO ORDER) 11/17/2023 11/16/2018, 11/16/2018 INFLUENZA VACCINE (#1) 2025 06/11/2016 Colorectal Cancer Screening (AUTO ORDER) 10/31/2025 Colorectal Cancer Screening 10/31/2025 FIT/FOBT Q 1 YEAR (AUTO ORDER) 10/31/2025 0 10/31/2024, 10/31/2024, 11/16/2018, Additional history exists FIT/FOBT Q 1 year 10/31/2025 10/31/2024, 11/16/2018 RSV VACCINE (60+ or ) (1 - 1-dose 75+ series) 2038 Procedures Procedure Name Priority Date/Time Associated Diagnosis Comments OCCULT BLOOD IMMUNOASSAY, COLORECTAL SCREEN Routine 10/31/2024 12:00 AM CDT Screening for colon cancer from Last 3 Months or Most Recently Relevant to Health Maintenance Results * OCCULT BLOOD IMMUNOASSAY, COLORECTAL SCREEN (10/31/2024 12:00 AM CDT) FECAL GLOBIN SEE NOTE [facility] Comment: FECAL GLOBIN BY IMMUNOCHEMISTRY Micro Number: [id number] Test Status: Final Specimen Source: Stool Specimen Quality: Adequate Fecal Globin: Not Detected NOTE: Approved collection includes sample of toilet water adjacent to stool. Other methods of collection such as stool transferred from diaper, bedpan, or commode to toilet water may lead to inaccurate results. Test Performed at: [facility] [id number] [facility] [place] [address] Suzanne Peguero MD Stool STOOL SPECIMEN / Unknown 10/31/2024 11/06/2024 2:45 PM CDT Hilda Hill SIZE MIXER BODY FLUIDS AND STOOLS Final Result [facility] [phone] [facility] [id number] [facility] [email or web address] [phone] from Last 3 Months or Most Recently Relevant to Health Maintenance Insurance MEDICARE PART A AND B MEDICAID [place] Care Teams Siebel Administrator Relationship Specialty Start Date End Date Fam Hodges DO [address] [place] [address] PCP - General Family Practice 04/05/24
[2025-06-22 20:15] VITALS: BP 108/76; PULSE 123; RESP 18; TEMP 36.7; O2SAT 100; BMI 20.2
--- NOTE | 2025-06-22 20:31 | USR_ITS ---
PROCEDURE INFORMATION: Exam: US Duplex Right Lower Extremity Veins, Limited Exam date and time: 06/22/2025 10:28 PM Age: 60 years old Clinical indication: Pain; Leg, lower; Right; Additional info: Rle pain, swelling, discoloration TECHNIQUE: Imaging protocol: Real-time duplex ultrasound of the right extremity with 2-D carrasco scale, color Doppler flow and spectral waveform analysis including responses to compression and other maneuvers (when performed) with image documentation. Limited exam was focused on the right lower extremity veins. Total images: [id number] COMPARISON: 1. US soft tissue/extremity [id number] 03/13/2019 3:40 PM 2. CR (LOW EXM, ) 06/22/2025 10:18 PM FINDINGS: Right deep veins: Unremarkable. The common femoral, femoral, proximal profunda femoral and popliteal veins are patent without thrombus. Normal Doppler waveforms. Normal compressibility and/or augmentation response. Superficial veins: Greater saphenous vein at the saphenofemoral junction is patent without thrombus. Soft tissues: Unremarkable. US/[place] [id number] IMPRESSION: No evidence of deep vein thrombosis.
[2025-06-22 21:58] VITALS: BP 110/52; O2SAT 98
--- NOTE | 2025-06-22 22:18 | XRR_ITS ---
PROCEDURE INFORMATION: Exam: XR Right Foot Exam date and time: 06/22/2025 10:18 PM Age: 60 years old Clinical indication: Swelling, leg or foot; Prior surgery; Surgery date: 6+ months; Surgery type: Pinning; Diffuse swelling and redness to RT foot. ; Additional info: Redness, swelling TECHNIQUE: Imaging protocol: Radiologic exam of the right foot. Views: 3 or more views. 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 No acute displaced fracture, subluxation or dislocation. Qualitative demineralization of bones (osteopenia) limiting evaluation for nondisplaced fractures. Soft tissues: Marked soft tissue swelling. Other findings: Generalized hammertoes. XR/XR foot RT min 3V* [id number] IMPRESSION: 1. 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 2. No acute displaced fracture. 3. Marked forefoot soft tissue swelling, nonspecific, although cellulitis is commonly encountered. COMMENTS: Qualitative demineralization of bones (osteopenia) limiting evaluation for nondisplaced fractures.
[2025-06-22 23:22] LABS: Hematocrit 38.1 % (37-53); Hemoglobin 13.10 g/dL (11.27-16.99); Mean Corpuscular HGB Conc 34.4 g/dL (30-55); Mean Corpuscular Hemoglobin 32.8 pg (27-33); Mean Corpuscular Volume 95.5 fl (82-101); Nucleated Red Blood Cells % 0 %; Platelet Count 297 10^3/cmm (157-399); Red Blood Count 3.99 10^6/uL (3.85-5.65); White Blood Count 8.27 10^3/uL (3.29-11.43)
--- NOTE | 2025-06-22 23:30 | W.ED.EXTPRO ---
HPI - Extremity Problem General: Chief complaint: Extremity Problem,Nontraumatic Stated complaint: right foot swollen discolored Time Seen by Provider: 06/22/25 21:42 Source: family Mode of arrival: ambulatory Limitations: physical limitation History of Present Illness: Patient is a 60-year-old male who presents to the emergency department for evaluation. Caregivers are primary historians, stating that his right foot has been warm and discolored all day. He has a history of cerebral palsy and he crawls to get around, they state that he has been crawling less. They note that normally his legs are always cold, is unusual that the right one is warm like it is. They deny any fevers or nausea/vomiting. He is mildly tachycardic at this time. They deny any trauma that is known. Deny any recent bug bites or other potential injuries. Patient cannot provide any review of systems due to his chronic disability. MD Complaint: extremity swelling and other (extremity warmth) Associated symptoms: Deny chest pain, fever(s) or rash Related Data Home Medications ?Medication ?Instructions ?Recorded ?Confirmed acetaminophen 160 mg tablet 160 mg PO Q6H PRN 10/08/19 02/05/25 ascorbic acid (vitamin C) 500 mg 500 mg PO DAILY 10/08/19 02/05/25 capsule,extended release (Vitamin C) baclofen 10 mg tablet 10 mg PO TID 10/08/19 02/05/25 bisacodyl 10 mg rectal suppository [address] DAILY PRN 10/08/19 02/05/25 carbamide peroxide 6.5 % ear drops 5 drop otic (ear) DAILY 10/08/19 02/05/25 (Ear Drops (carbamide peroxide)) ferrous sulfate 325 mg (65 mg 325 mg PO DAILY 10/08/19 02/05/25 iron) tablet ketoconazole 2 % topical cream 1 applic topical DAILY PRN 10/08/19 02/05/25 loratadine 10 mg capsule 10 mg PO DAILY 10/08/19 02/05/25 pediatric multivitamin no.76 1 tab PO DAILY 10/08/19 02/05/25 (Flintstones Complete chewable tablet) polyethylene glycol 3350 17 17 gm PO DAILY 10/08/19 02/05/25 gram/dose oral powder (Miralax) Previous Rx's ?Medication ?Instructions ?Recorded zonisamide 100 mg capsule 500 mg (5 x 100 mg) PO DAILY #150 02/13/25 caps carbamazepine 100 mg chewable See Rx Instructions PO TID #330 04/10/25 tablet tabs doxycycline hyclate 100 mg tablet 100 mg PO BID 7 days #14 tabs 06/22/25 Allergies Allergy/AdvReac Type Severity Reaction Status Date / Time midazolam (From Versed) Allergy Severe Unknown Verified 02/05/25 08:05 Review of Systems General: Reports: 10 or more systems reviewed and unremarkable except in HPI and below Const: Denies: fever(s) or chills Card: Denies: chest pain Resp: Denies: dyspnea GI: Denies: abdominal pain, nausea, vomiting or diarrhea Musc: Reports: extremity pain, extremity swelling and other (extremity warmth); Denies: joint pain Skin/Breast: Denies: rash, skin pain, skin tenderness or new lesions Neuro: Denies: headache(s) PFSH ED PFSH: Family History Other Cancer Denies family history of Diabetes Hypertension Stroke Social History Smoking and tobacco/nicotine status: never used tobacco/nicotine Alcohol intake: never Substance/Drug Use: never Physical Exam Const: COMMON NORMALS: alert and well nourished EXAM LIMITATIONS: physical limitations HENMT: COMMON NORMALS: normocephalic and atraumatic HEAD & SCALP: normocephalic and atraumatic Neck/C-Spine: COMMON NORMALS: full ROM, no lymphadenopathy, supple and no meningeal signs Resp: COMMON NORMALS: normal respiratory effort, No use of accessory muscles and clear to auscultation bilaterally AUSCULTATION: clear to auscultation bilaterally Cardio: COMMON NORMALS: regular rate and regular rhythm RATE: regular rate RHYTHM: regular rhythm Extremity: NARRATIVE EXTREMITY EXAM: Warmth to the right lower extremity with swelling, primarily involving the dorsum of the right foot. There is chronic deformity present bilaterally. No red streaking. No signs of trauma. Pulses are present. Neuro: SENSORIUM/ORIENTATION: Yes alert MENINGEAL SIGNS: Yes no meningeal signs Skin: COMMON NORMALS: turgor normal GENERAL SKIN EXAM: turgor normal Course Vital Signs: Vital signs: Vital Signs Temperature 98.1 F 06/22/25 20:15 Pulse Rate 75 06/23/25 00:44 Respiratory Rate 18 06/22/25 20:15 Blood Pressure 98/55 06/23/25 00:44 Pulse Oximetry 98 06/23/25 00:44 Oxygen Delivery Me thod Room Air 06/22/25 21:58 MDM - Extremity (Nontraumatic) Medical Decision Making Patient brought in for evaluation of warmth and swelling to right foot. No reported injury, he has not been showing signs of systemic illness such as fever or nausea/vomiting. He does have a history of cerebral palsy and thus does not give any history, and his caregivers who states that he has been crawling around less. Mildly tachycardic at time of examination, but afebrile and blood pressure normal. Lab work showing no leukocytosis, normal lactic acid, mild elevation in CRP representing the inflammatory reaction. Duplex ultrasound showing no DVT, foot x-ray showing soft tissue swelling but no acute fracture. Will treat for cellulitis as this seems clinically consistent at this time with this, will treat with doxycycline but ultimately encouraged caregivers to monitor for any worsening signs of infection or systemic illness and return if worse. Stable for discharge and outpatient therapy at this time however. Lab Data 06/22/25 22:58 06/22/25 22:58 Radiology Impressions Venous Duplex 06/22/25 20:31 IMPRESSION: No evidence of deep vein thrombosis. Foot X-Ray 06/22/25 22:18 IMPRESSION: 1. 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 2. No acute displaced fracture. 3. Marked forefoot soft tissue swelling, nonspecific, although cellulitis is commonly encountered. COMMENTS: Qualitative demineralization of bones (osteopenia) limiting evaluation for nondisplaced fractures. Laboratory Results WBC 8.27 10^3/uL (3.29-11.43) 06/22/25 22:58 RBC 3.99 10^6/uL (3.85-5.65) 06/22/25 22:58 Hgb 13.10 g/dL (11.27-16.99) 06/22/25 22:58 Hct 38.1 % (37-53) 06/22/25 22:58 MCV 95.5 fl (82-101) 06/22/25 22:58 MCH 32.8 pg (27-33) 06/22/25 22:58 MCHC 34.4 g/dL (30-55) 06/22/25 22:58 RDW 13.2 % (12.1-15.1) 06/22/25 22:58 Plt Count 297 10^3/cmm (157-399) 06/22/25 22:58 MPV 9.5 fL (7.4-10.4) 06/22/25 22:58 Neut % (Auto) 80.5 % 06/22/25 22:58 Lymph % (Auto) 9.7 % 06/22/25 22:58 [place] % (Auto) 5.7 % 06/22/25 22:58 Eos % (Auto) 2.9 % 06/22/25 22:58 Baso % (Auto) 0.6 % 06/22/25 22:58 Neut # (Auto) 6.66 10^3/uL (1.8-7.7) 06/22/25 22:58 Lymph # (Auto) 0.8 10^3/uL (0.8-4.8) 06/22/25 22:58 [place] # (Auto) 0.5 10^3/uL (0.2-0.9) 06/22/25 22:58 Eos # (Auto) 0.2 10^3/uL (0.0-0.8) 06/22/25 22:58 Baso # (Auto) 0.1 10^3/uL (0.0-0.1) 06/22/25 22:58 Nucleated RBC % (auto) 0 % 06/22/25 22:58 Nucleated RBCs # 0.0 /100WBC 06/22/25 22:58 ESR 10 mm/hr (0-10) 06/22/25 22:58 Sodium 140 mmol/L (136-145) 06/22/25 22:58 Potassium 3.9 mmol/L (3.5-5.1) 06/22/25 22:58 Chloride 108 mmol/L (98-107) H 06/22/25 22:58 Carbon Dioxide 20 mmol/L (22-29) L 06/22/25 22:58 Anion Gap 15.9 (5-19) 06/22/25 22:58 BUN 21 mg/dL (8-23) 06/22/25 22:58 Creatinine 0.5 mg/dL (0.7-1.2) L 06/22/25 22:58 GFR Calculation 168.5 mL/min (90-130) H 06/22/25 22:58 Glucose 112 mg/dL (65-115) 06/22/25 22:58 Calculated Osmolality 294 mOsm/kg (285-295) 06/22/25 22:58 Lactic Acid 0.8 mmol/L (0.5-2.2) 06/22/25 22:58 Calcium 8.5 mg/dL (8.5-10.5) 06/22/25 22:58 Total Bilirubin 0.2 mg/dL (0.15-1.2) 06/22/25 22:58 AST 14 U/L (0-40) 06/22/25 22:58 ALT 14 U/L (0-41) 06/22/25 22:58 Alkaline Phosphatase 156 U/L (40-130) H 06/22/25 22:58 C-Reactive Protein 52.5 mg/L (0.0-4.9) H 06/22/25 22:58 Total Protein 6.6 g/dL (6.6-8.7) 06/22/25 22:58 Albumin 4.1 g/dL (3.5-5.2) 06/22/25 22:58 Globulin 2.5 g/dL (1.3-4.6) 06/22/25 22:58 All radiology interpretation(s) finalized by discharge Discharge Plan Discharge Patient Disposition: Home Clinical Impression: Cellulitis of foot, right Condition: Stable Prescriptions: New doxycycline hyclate 100 mg tablet 100 mg PO BID 7 Days Qty: 14 0RF No Action ferrous sulfate 325 mg (65 mg iron) tablet 325 mg PO DAILY ascorbic acid (vitamin C) [Vitamin C] 500 mg capsule, extended release 500 mg PO DAILY Flintstones Complete Tablet,Chewable 1 tab PO DAILY loratadine 10 mg capsule 10 mg PO DAILY polyethylene glycol 3350 [Miralax] 17 gram/dose powder 17 gm PO DAILY baclofen 10 mg tablet 10 mg PO TID acetaminophen 160 mg tablet 160 mg PO Q6H PRN bisacodyl 10 mg suppository [address] DAILY PRN carbamide peroxide [Ear Drops (carbamide peroxide)] 6.5 % drops 5 drop EAR-BOTH DAILY ketoconazole 2 % cream 1 applic TOPICAL DAILY PRN zonisamide 100 mg capsule 500 mg PO DAILY Qty: 150 11RF Rx Instructions: with applesauce carbamazepine 100 mg tablet,chewable See Rx Instructions PO TID Qty: 330 11RF Rx Instructions: orally three times daily; 400 in the morning, 200 at noon and 400 in the evening. Discharge Orders: Discharge ED (Routine); Ordered 06/22/25 Ordered By: Julio Nath Referrals: Hilda Hill FNP [Primary Care Provider, Family Practice] Patient Instructions: Patient Portal & Juliet Instructions Activity Restrictions/Additional Instructions: Cellulitis Discharge Instructions Diagnosis: Cellulitis of the right foot Treatment: Doxycycline 100 mg by mouth twice daily for 7 days Instructions: - Take doxycycline exactly as prescribed. Do not skip doses, and complete the full 7-day course even if you start to feel better. Stopping early or missing doses can reduce effectiveness and increase the risk of antibiotic resistance. - Take doxycycline with a full glass of water. Remain upright for at least 30 minutes after taking each dose to reduce the risk of stomach upset or throat irritation. - Avoid excessive sunlight or tanning beds while taking doxycycline, as it can make your skin more sensitive to sunburn. Use sunscreen and wear protective clothing if you must be outdoors. - Monitor your symptoms. You should notice improvement in redness, swelling, pain, or warmth within 24-48 hours. If your symptoms worsen or do not improve, contact your healthcare provider promptly. - Possible side effects include nausea, diarrhea, or yeast infections. If you develop severe diarrhea (especially if it is watery or bloody), rash, difficulty breathing, or any other concerning symptoms, seek medical attention. - Elevate your right foot as much as possible to help reduce swelling and speed recovery. - Keep the affected area clean and dry. Wash gently with soap and water, and avoid picking at the skin. - Follow up as directed by your healthcare provider. If you have not been scheduled for a follow-up, or if you have any concerns, call your provider. - Call your healthcare provider or go to the emergency room if you develop: - Fever or chills - Rapidly worsening redness, swelling, or pain - New blisters, pus, or black areas on the skin - Difficulty breathing or swallowing Additional notes: - Doxycycline may decrease the effectiveness of some control pills. Use an additional form of contraception if needed. - Do not take antacids, iron supplements, or calcium within 2 hours of doxycycline, as these can reduce its effectiveness. If you have any questions or concerns, please contact your healthcare provider. Print Language: Latvian Coding Level of Care Code ED News Correspondent for Sandra Kessler
[2025-06-22 23:40] LABS: Alanine Aminotransferase 14 U/L (0-41); Albumin Level 4.1 g/dL (3.5-5.2); Alkaline Phosphatase 156 U/L (40-130); Anion Gap 15.9 (5-19); Aspartate Amino Transferase 14 U/L (0-40); Blood Urea Nitrogen 21 mg/dL (8-23); Calcium 8.5 mg/dL (8.5-10.5); Carbon Dioxide 20 mmol/L (22-29); Chloride 108 mmol/L (98-107); Creatinine Clr Calc Pharmacy 114.6158; Globulin 2.5 g/dL (1.3-4.6); Glucose 112 mg/dL (65-115); Lactic Sepsis W/Reflex 0.8 mmol/L (0.5-2.2); Osmolality Calculated 294 mOsm/kg (285-295); Potassium 3.9 mmol/L (3.5-5.1); Sodium 140 mmol/L (136-145); Total Protein 6.6 g/dL (6.6-8.7)
[2025-06-22 23:55] VITALS: BP 125/62; O2SAT 99
[2025-06-23] MEDS: cefTRIAXone 1,000 mg SDV 1000 MG IVP (00:26)
[2025-06-23 00:44] VITALS: BP 98/55; PULSE 75; O2SAT 98
== END 2025-06-23 00:47 | disposition home or self-care (01) ==
PROVIDERS: Emergency Provider Physician Assistant; PCP Nurse Practitioner Family
DX: L03.115 Cellulitis of right lower limb (principal)
CPT/HCPCS: 36415; 73630; 80053; 83605; 85025; 85651; 86140; 87040; 87077; 87150; 87186; 87205; 93971; 96374; 96375; 99284; J0696; J1100